=== PATIENT | male | born 1980 ===

== ENCOUNTER 2016-06-30 20:03 | Emergency (ER) | payer SELFPAY ==
[2016-06-30 21:35] LABS: Hemoglobin 15.5 gm/dl (11.8-15.2); Mean Corpuscular HGB Conc 34 % (32-34); Mean Corpuscular Hemoglobin 28 pg (28-32); Mean Corpuscular Volume 84 fl (84-94); Platelet Count 256 K/mm3 (140-440); Red Blood Count 5.48 M/mm3 (3.65-5.03); Red Cell Distribution Width 14.3 % (13.2-15.2); White Blood Count 10.6 K/mm3 (4.5-11.0)
[2016-06-30 22:16] LABS: Basophils % (Manual) 0 % (0.0-1.8); Blastocytes % (Manual) 0 %; Diff Status Complete; RBC Morphology Normal
[2016-06-30 22:18] LABS: Anion Gap 21 mmol/L; BUN/Creatinine Ratio 19.09; Blood Urea Nitrogen 21 mg/dL (9-20); Calcium 9.1 mg/dL (8.4-10.2); Carbon Dioxide 24 mmol/L (22-30); Chloride 102.8 mmol/L (98-107); Glucose 77 mg/dL (75-100); Potassium 4.1 mmol/L (3.6-5.0); Sodium 144 mmol/L (137-145)
[2016-07-01 02:23] VITALS: BP 121/81
[2016-07-01] MEDS ORDERED: TYLENOL PO ONE (02:23)
== END 2016-07-01 05:20 | disposition left against medical advice (07) ==
LOC: ED 20:03
DX: R07.9 Chest pain, unspecified (principal); Z53.21 Procedure and treatment not carried out due to patient leaving prior to being seen by health care provider
CPT/HCPCS: 36415; 80048; 84484; 85007; 85025; 93005; 93010